=== PATIENT | female | born 1980 | race African-American/Black ===

== ENCOUNTER 2019-05-02 10:38 | Emergency (ER) | payer MEDICARE, MEDICAID ==
[~2019-05-02] VITALS: Ht 167.6 cm; Wt 68.2 kg
[~2019-05-02 10:38] MED LIST: NO HOME MEDS; ONDA4TAB12 PO
[2019-05-02 10:58] VITALS: BP 113/80
[2019-05-02] MEDS ORDERED: azithromycin 250mg tablet PO ONE (11:50)
[2019-05-02] MEDS ORDERED: CefTRIAXone 250MG inj IM ONE (11:50)
[2019-05-02] MEDS ORDERED: CefTRIAXone 250MG IM Kit w/LIDOcaine IM ONE (11:55)
[2019-05-02 11:59] LABS: CLARITY,URINE CLEAR (Clear); COLOR,URINE YELLOW (Yellow); GLUCOSE, URINE NEGATIVE (Neg); KETONES,URINE NEGATIVE (Neg); LEUKOCYTE ESTERASE ,URINE SMALL (Neg); NITRITES, URINE NEGATIVE (Neg); OCCULT BLOOD,URINE MODERATE (Neg); PROTEIN,URINE NEGATIVE (Neg); UROBILINOGEN,URINE 0.2 E.U/dL (0.2-1.0)
[2019-05-02 12:02] LABS: URINE HCG NEGATIVE (NEG)
[2019-05-02 12:05] LABS: UA COLLECTION TYPE VOIDED
[2019-05-02 12:08] LABS: MUCUS STRANDS MANY /LPF (Neg); SQUAMOUS EPITHELIAL CELL,UR MODERATE /LPF (FEW)
[2019-05-02 12:12] LABS: BACTERIA,URINE 1+ /HPF (Neg)
[2019-05-02] MEDS ORDERED: FLUC150T66 PO (12:31)
[2019-05-02] MEDS ORDERED: METR500T PO (12:31)
== END 2019-05-02 12:55 | disposition home or self-care (01) ==
LOC: ER 10:39
DX: N89.8 Other specified noninflammatory disorders of vagina (principal); Z88.1 Allergy status to other antibiotic agents; Z79.899 Other long term (current) drug therapy
CPT/HCPCS: 36415; 81001; 81025; 87088; 87491; 87591; 96372; 99283; J0696

== ENCOUNTER 2019-09-04 20:03 | Emergency (ER) | payer MEDICARE, MEDICAID ==
[~2019-09-04] VITALS: Ht 167.6 cm; Wt 68.2 kg
[2019-09-04 20:05] VITALS: BP 130/87
[2019-09-04] MEDS ORDERED: HYDROcodone/acetaminophen 5mg/325mg tablet PO ONE (21:50)
[2019-09-04] MEDS ORDERED: IBUP-1985 PO (22:08)
== END 2019-09-04 22:25 | disposition home or self-care (01) ==
LOC: ER 20:04
DX: S93.602A Unspecified sprain of left foot, initial encounter (principal); Z88.0 Allergy status to penicillin; Z79.899 Other long term (current) drug therapy; X58.XXXA Exposure to other specified factors, initial encounter; Y93.89 Activity, other specified; Y92.002 Bathroom of unspecified non-institutional (private) residence as the place of occurrence of the external cause; Y99.8 Other external cause status
CPT/HCPCS: 73630; 99283

== ENCOUNTER 2020-09-25 11:25 | Emergency (ER) | payer MEDICARE, MEDICAID ==
[~2020-09-25] VITALS: Ht 175.3 cm; Wt 80.0 kg
[~2020-09-25 11:25] MED LIST changes: +IBUP-1985 PO
[2020-09-25 12:39] LABS: BASOPHILS % (AUTO) 0.6 % (0-1); EOSINOPHILS % (AUTO) 0.3 % (0-6); HEMOGLOBIN 12.9 g/dl (12.0-16.0); LYMPHOCYTES % (AUTO) 23.3 % (21-51); MEAN CORPUSCULAR HEMOGLOBIN 30.9 PG (27.0-31.0); MEAN CORPUSCULAR HGB CONC 32.9 g/dL (33.0-36.5); MEAN CORPUSCULAR VOLUME 93.8 FL (78-98); MEAN PLATELET VOLUME 7.4 FL (7.4-10.4); MONOCYTES # (AUTO) 0.3 X10'3 (0-0.9); MONOCYTES % (AUTO) 7.2 % (2-12); NEUTROPHILS # (AUTO) 2.9 X10'3 (1.8-7.7); NEUTROPHILS % (AUTO) 68.6 % (42-75); PLATELET COUNT 305 X10'3 (140-440); RED BLOOD COUNT 4.16 X10'6 (4.20-5.60); RED CELL DISTRIBUTION WIDTH 14.1 % (11.5-14.5); WHITE BLOOD COUNT 4.2 X10'3 (4.5-11.0)
[2020-09-25 12:48] LABS: ANION GAP 8 (8-16); CHLORIDE 106 MMOL/L (99-107); POTASSIUM 3.9 MMOL/L (3.5-5.1); SODIUM 139 MMOL/L (135-145); TOTAL CARBON DIOXIDE 25.2 MMOL/L (24-32)
[2020-09-25 12:57] LABS: URINE HCG POSITIVE (NEG)
[2020-09-25 13:02] LABS: ALANINE AMINOTRANSFERASE 19 U/L (12-78); ALBUMIN 3.6 G/DL (3.4-5.0); ALKALINE PHOSPHATASE 47 IU/L (46-116); ASPARTATE AMINO TRANSFERASE 13 U/L (10-37); BILIRUBIN,TOTAL 0.4 MG/DL (0.1-1.0); BLOOD UREA NITROGEN 9 MG/DL (7-18); BUN/CREATININE RATIO 13.4 (6.6-38.0); CALCIUM 8.4 MG/DL (8.5-10.1); CREATININE 0.67 MG/DL (0.40-0.90); GLUCOSE 109 MG/DL (70-104); TOTAL PROTEIN 7.1 G/DL (6.4-8.2); eGFR > 90 ML/MIN
[2020-09-25 13:02] LABS: CLARITY,URINE CLEAR (Clear); COLOR,URINE YELLOW (Yellow); GLUCOSE, URINE NEGATIVE (Neg); KETONES,URINE NEGATIVE (Neg); LEUKOCYTE ESTERASE ,URINE NEGATIVE (Neg); NITRITES, URINE NEGATIVE (Neg); OCCULT BLOOD,URINE NEGATIVE (Neg); PH,URINE 8.5 (4.8-8.0); PROTEIN,URINE NEGATIVE (Neg)
[2020-09-25 13:04] LABS: UA COLLECTION TYPE CLN CATCH MIDSTREAM
[2020-09-25 13:12] VITALS: BP 124/80
--- NOTE | 2020-09-25 14:15 | NUR ---
[employer]PRE[employer] WAS USED, ID#[id number], TO DISCUSS PROCEDURE WITH PT PRIOR TO PELVIC EXAM
[2020-09-25 14:47] LABS: BETA HCG,QUANTITATIVE 2001 mIU/ml
--- NOTE | 2020-09-25 15:41 | NUR ---
NELLY HANDY, ID#[id number], USED TO DISCUSS TEST RESULTS WITH PT BY PROVIDER, AND DISCHARGE PLAN, SIGNS/SYMPTOMS FOR CONCERN, FOLLOW UP
== END 2020-09-25 15:48 | disposition home or self-care (01) ==
LOC: ER 11:26
DX: O46.8X1 Other antepartum hemorrhage, first trimester (principal); O26.891 Other specified pregnancy related conditions, first trimester; R10.30 Lower abdominal pain, unspecified; Z3A.01 Less than 8 weeks gestation of pregnancy; Z88.0 Allergy status to penicillin; Z79.899 Other long term (current) drug therapy
CPT/HCPCS: 36415; 76801; 80053; 81003; 81025; 84702; 85025; 86900; 86901; 87210; 93976; 99284

== ENCOUNTER 2020-09-27 13:40 | Emergency (ER) | payer MEDICARE, MEDICAID ==
[~2020-09-27] VITALS: Ht 172.7 cm; Wt 80.0 kg
[2020-09-27 14:33] VITALS: BP 109/72
== END 2020-09-27 15:40 | disposition home or self-care (01) ==
LOC: ER 13:41
DX: O26.91 Pregnancy related conditions, unspecified, first trimester (principal); Z3A.00 Weeks of gestation of pregnancy not specified; Z88.1 Allergy status to other antibiotic agents; Z79.899 Other long term (current) drug therapy
CPT/HCPCS: 36415; 84702; 99283

== ENCOUNTER 2020-09-30 12:02 | Emergency (ER) | payer MEDICARE, MEDICAID ==
[~2020-09-30] VITALS: Ht 167.6 cm; Wt 70.5 kg
--- NOTE | 2020-09-30 13:34 | NUR ---
COVID SWAB WAS NOT DONE DUE TO PATIENT REFUSING TO COMPLY WITH TESTING.
--- NOTE | 2020-09-30 13:34 | NUR ---
PATIENT REFUSED COVID19 SWAB. PROVIDER MADE AWARE.
== END 2020-09-30 13:36 | disposition home or self-care (01) ==
LOC: ER 12:02
DX: R43.8 Other disturbances of smell and taste (principal); Z20.828 Contact with and (suspected) exposure to other viral communicable diseases; Z88.0 Allergy status to penicillin; Z79.899 Other long term (current) drug therapy
CPT/HCPCS: 99282

== ENCOUNTER 2023-12-26 18:48 | Emergency (ER) | payer MEDICARE, MEDICAID ==
[~2023-12-26] VITALS: Ht 157.5 cm; Wt 65.9 kg
[2023-12-26 18:52] VITALS: BP 132/88; PULSE 101; RESP 18; TEMP 98.9; O2SAT 100
[2023-12-26 19:27] LABS: BASOPHILS % (AUTO) 0.7 % (0-1); EOSINOPHILS % (AUTO) 0.9 % (0-6); HEMATOCRIT 37.3 % (35.0-45.0); HEMOGLOBIN 12.4 g/dl (12.0-16.0); LYMPHOCYTES # (AUTO) 1.6 X10'3 (1.1-4.8); MEAN CORPUSCULAR HEMOGLOBIN 30.1 PG (27.0-31.0); MEAN CORPUSCULAR HGB CONC 33.3 g/dL (33.0-36.5); MEAN CORPUSCULAR VOLUME 90.6 FL (78-98); MEAN PLATELET VOLUME 6.9 FL (7.4-10.4); MONOCYTES # (AUTO) 0.4 X10'3 (0-0.9); MONOCYTES % (AUTO) 7.4 % (2-12); NEUTROPHILS # (AUTO) 3.2 X10'3 (1.8-7.7); PLATELET COUNT 351 X10'3 (140-440); RED BLOOD COUNT 4.12 X10'6 (4.20-5.60); RED CELL DISTRIBUTION WIDTH 15.6 % (11.5-14.5); WHITE BLOOD COUNT 5.3 X10'3 (4.5-11.0)
[2023-12-26 20:02] LABS: ALBUMIN 3.5 G/DL (3.4-5.0); ANION GAP 9 (8-16); BLOOD UREA NITROGEN 11 MG/DL (7-18); BUN/CREATININE RATIO 15.7 (10.0-20.0); CALCIUM 8.3 MG/DL (8.5-10.1); CHLORIDE 103 MMOL/L (99-107); GLUCOSE 94 MG/DL (70-104); LIPASE 32 U/L (16-77); POTASSIUM 3.3 MMOL/L (3.5-5.1); SODIUM 140 MMOL/L (135-145); TOTAL CARBON DIOXIDE 27.8 MMOL/L (24-32); eCRCL 98 ML/MIN; eGFR > 90 ML/MIN
[2023-12-26 20:27] LABS: BETA HCG,QUANTITATIVE < 1.0 mIU/ml
[2023-12-26 21:13] LABS: BILIRUBIN,URINE NEGATIVE (Neg); CLARITY,URINE CLEAR (Clear); COLOR,URINE YELLOW (Yellow); GLUCOSE, URINE NEGATIVE (Neg); KETONES,URINE NEGATIVE (Neg); LEUKOCYTE ESTERASE ,URINE NEGATIVE (Neg); NITRITES, URINE NEGATIVE (Neg); OCCULT BLOOD,URINE LARGE (Neg); PH,URINE 7.5 (4.8-8.0); PROTEIN,URINE TRACE mg/dl (Neg); UROBILINOGEN,URINE 0.2 E.U/dL (0.2-1.0)
[2023-12-26 21:15] LABS: UA COLLECTION TYPE CLN CATCH MIDSTREAM
[2023-12-26 21:27] LABS: MUCUS STRANDS MANY /LPF (Neg); SQUAMOUS EPITHELIAL CELL,UR MODERATE /LPF (FEW)
[2023-12-26 21:28] LABS: BACTERIA,URINE FEW /HPF (Neg); RBC,URINE 20-50 /HPF (0-2); WBC,URINE 0-4 /HPF (0-4)
== END 2023-12-26 22:25 | disposition home or self-care (01) ==
LOC: ER 18:49
DX: N93.9 Abnormal uterine and vaginal bleeding, unspecified (principal); Z88.0 Allergy status to penicillin; Z88.1 Allergy status to other antibiotic agents; Z79.1 Long term (current) use of non-steroidal anti-inflammatories (NSAID); Z79.899 Other long term (current) drug therapy
CPT/HCPCS: 36415; 80048; 81001; 83690; 84702; 85025; 99283

== ENCOUNTER 2025-04-29 02:20 | Emergency (ER) | payer MEDICAID, MEDICARE, OTHER ==
[~2025-04-29] VITALS: Ht 170.2 cm; Wt 76.4 kg
[~2025-04-29 02:20] MED LIST changes: +ONDA-243 PO; -ONDA4TAB12 PO
[2025-04-29 02:36] VITALS: BP 138/99; PULSE 111; RESP 16; TEMP 98.6; O2SAT 95
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
== END 2025-04-29 03:08 ==
LOC: ER 02:21
DX: Z02.89 Encounter for other administrative examinations (principal); Z88.0 Allergy status to penicillin; V89.2XXA Person injured in unspecified motor-vehicle accident, traffic, initial encounter; Y93.89 Activity, other specified; Y92.410 Unspecified street and highway as the place of occurrence of the external cause; Y99.8 Other external cause status
CPT/HCPCS: 99283

== ENCOUNTER 2025-08-01 16:41 | Emergency (ER) | payer BC ==
[~2025-08-01] VITALS: Ht 167.6 cm; Wt 70.5 kg
[~2025-08-01 16:41] MED LIST changes: -IBUP-1985 PO; +IBUP600T52 PO
[2025-08-01 16:53] VITALS: BP 146/93; PULSE 100; RESP 16; TEMP 97.6; O2SAT 97
--- NOTE | 2025-08-01 17:20 | RADIOLOGY REPORT ---
Indication: TOE PAIN RIGHT 1ST Technique: DI TOE(S)TOES Comparison: None FINDINGS/IMPRESSION: No radiographic evidence for acute fracture or dislocation. No significant soft tissue edema. No radiopaque foreign body.
--- NOTE | 2025-08-01 18:10 | Physician Documentation ---
History of Present Illness ~ Chief Complaint: Toe pain Stated Complaint: R TOE PAIN Time Seen by MD: 17:21 Primary Medical Doctor: [facility] HPI This is a 45-year-old female who presents with one-month of right great toe pain following stubbing her toe, patient reports that it hurts when she walks or drives. Reports no other acute symptoms or concerns including no weakness or numbness in the foot. Tetanus witin 5 years: No Medication Reconciliation Allergies: Coded Allergies: Penicillins (Verified Allergy, Unknown, 08/01/25) amoxicillin (Unverified Allergy, Unknown, 08/01/25) Scheduled Ibuprofen (Ibuprofen), 1 TAB PO Q8H Scheduled PRN ONDANSETRON ODT 4mg tablet (Ondansetron Odt), 1 TABLET PO Q6H PRN for nausea/vomiting Miscellaneous Medications Home Med List (No Home Medications), (Reported) Past Medical History Past Medical History: *ENT* Past Surgical History: noncontributory Alcohol Use: None Drug Use: none Lives with: Spouse Lives In: Home Review of Systems ROS As stated above in the HPI, otherwise all systems are reviewed and negative. Physical Exam Vital Signs: Temperature: 97.6, Source: Temporal, Heart Rate: 100, Respiratory Rate: 16, BP: 146/93, Pulse Oximetry: 97, Weight: 70.500 Oxygen Flow Rate: 0 Physical Exam VITALS: Reviewed and as above. GENERAL: Alert, nontoxic appearing, no apparent distress. RESPIRATORY: No increased work of breathing, no respiratory distress, speaking in full clear sentences CV: Brisk capillary refill and pedal pulse intact in right foot MUSCULOSKELETAL: Right foot and toes no swelling, no erythema, no obvious deformity, no tenderness to palpation, range of motion intact NEURO: Sensation intact to right foot and toes Progress Results/Orders Results/Orders Orders - DIMA ADAM Toe(S) (08/01/25 17:07) Ortho Orders (08/01/25 ) Completed Orders - DIMA ADAM Toe(S) (08/01/25 17:07) Vital Signs 08/01/25 16:53 Temp 97.6 Pulse 100 Resp 16 B/P (MAP) 146/93 Pulse Ox 97 O2 Flow Rate 0 EKG/XRAY/CT/US/VASC/MRI Bone/Soft Tissue X-Ray (Ext.) : Additional Comment Exam: TOE(S) Indication: TOE PAIN RIGHT 1ST Technique: DI TOE(S)TOES Comparison: None FINDINGS/IMPRESSION: No radiographic evidence for acute fracture or dislocation. No significant soft tissue edema. No radiopaque foreign body. Electronically Signed by:DEV ARMANDO MD Date & Time: 08/01/251721 Dictated by: DEV ARMANDO MD Dictation date and time: 08/01/251721 I have reviewed and agree with the radiology report. I have reviewed and interpreted the imaging as: No fracture or dislocation Medical Decision Making Additional information obtaine: N/A Findings This 45-year-old female presented with one-month of right great toe pain following stubbing her toe, physical exam did not demonstrate any evidence of swelling or other injury including no tenderness to palpation as patient reports pain is only present when walking or driving. Imaging did not demonstrate evidence of fracture or dislocation and it is reassuring the foot is neurovascularly intact. Patient will likely require Podiatry follow up which she will contact her primary care provider for referral, treatment plan until follow up is rest, ice, compression, elevation and patient will be placed on crutches to rest the foot. Patient is otherwise well-appearing with remainder of exam benign and appropriate for outpatient follow up. Patient provided follow up instructions return to care precautions, and home care instructions which she noted understanding of. General Diff Dx:Considerations: Include: Laceration, Neurovascular injury, Open fracture, Sprain Knee Diff Dx:Considerations: Unlikely: Abrasion, Arthritis, Contusion, DJD, Fracture-femur, Fracture-fibula, Fracture-patella, Fracture-tibia, Gout, Hematoma, Laceration, Meniscus injury, Neurovascular injury, Open fracture, Rheumatoid arthritis, Septic, Sprain, Sprain-MCL, Sprain-LCL, Sprain-ACL, Sprain-PCL, Other Ankle Diff Dx:Considerations: Unlikely: Abrasion, Arthritis, Contusion, DJD, Fracture-metatarsal, Fracture-fibula, Fracture-tarsal, Fracture-tibia, Gout, Hematoma, Laceration, Malunion, Neurovascular injury, Nonunion, Open fracture, Osteomyelitis, Rheumatoid arthritis, Sprain, Septic, Ulcer, Other Foot Diff Dx:Considerations: Include: Abrasion, Cellulitis, Contusion, Dislocation, DJD, Fracture-metatarsal, Fracture-phalynx, Fracture-tarsal, Ingrown toenail, Neurovascular injury, Rheumatoid, Sprain, Septic Toe Diff Dx:Considerations: Include: Abrasion, Cellulitis, Contusion, Dislocation, Fracture, Hematoma, Laceration, Neurovascular injury, Open fracture Departure Time of Disposition: 18:09 Disposition: 01 HOME / SELF CARE / HOMELESS Impression: Primary Impression: Right foot pain Condition: Improved Discharge Instructions: Foot Pain, RICE Therapy for Routine Care of Injuries Additional Instructions: Please use the crutches to rest your foot, follow up with your primary care provider for referral to Podiatry. Please follow up with your primary care provider in the next few days. Please return to the emergency department for any new or worsening concerning symptoms. Please see attached home care instru ctions for rest, ice, compression, and elevation, you may use ibuprofen and or Tylenol as needed as directed by [id number] packaging for pain. Referrals: NO PRIMARY CARE PROVIDER (PCP) Education Educated: Patient Educated regarding: diagnosis, treatment, prognosis, need for follow up Signature Scribe Signature: No Scribe Attestation: The note accurately reflects work and decisions made by me.JORGE ALBERTO Islas 08/02/25 00:48 DIMA ADAM Aug 01, 2025 18:10
== END 2025-08-01 18:17 | disposition home or self-care (01) ==
LOC: ER 16:41
DX: M79.674 Pain in right toe(s) (principal); Z88.0 Allergy status to penicillin; Z88.1 Allergy status to other antibiotic agents; Z79.899 Other long term (current) drug therapy
CPT/HCPCS: 73660; 99283